=== PATIENT | female | born 1965 | race Caucasian/White ===

== ENCOUNTER 2022-04-12 13:36 | Day surgery (SDC) | payer OTHER ==
--- NOTE | 2022-04-12 13:05 | CONS ---
CONSULT DATE: 04/12/2022 HISTORY: A 57-year-old has a small pea-sized area on medial breast/chest area for some time with increased swelling. She had been on some oral antibiotics recently with no drainage. It has been increasing in size. PAST MEDICAL HISTORY: She has some partials. She has some allergic rhinitis. Osteoarthritis. PAST SURGICAL HISTORY: section. Knee arthroplasty. Carpal tunnel. Uterine ablation in the past. HOME MEDICATIONS: Bactrim. ALLERGIES: ZYBAN. FAMILY HISTORY: Myocardial infarction. SOCIAL HISTORY: History of smoking. Occasional alcohol use. REVIEW OF SYSTEMS: Fourteen systems reviewed. No chest pain or palpitations other systems negative or noncontributory as above and per preadmission questionnaire. PHYSICAL EXAMINATION: Height 5'1". BMI 22.3. GENERAL: No acute distress. HEENT: Sclera nonicteric. NECK: No JVD. CHEST: Equal excursion, breath sounds symmetrical. CVS: Regular rate and rhythm. BREAST: In the right breast/chest area enlarged what looks like an infected cyst. ABDOMEN: Soft. No peritoneal signs. EXTREMITIES: No edema. NEURO: Alert, moving extremities grossly symmetrically. PSYCH: Appropriate mood and affect. SKIN: Dry. IMPRESSION: Infected breast/chest cyst. Discussed I&D versus excision. Risks and benefits explained. The patient prefers to proceed with attempted excision. General risk of bleeding or infection possibly requiring packing. General risk of aches, pains, risk of anesthesia, deep venous thrombosis, pulmonary embolism or pneumonia but not limited to, possible need for packing strip. Risk of wound dehiscence possibly requiring packing at a later date as well as possibility of small packing strip. She understands and agrees to the planned procedure, will proceed with excisional biopsy of infected breast/chest cyst possible packing when OR time available.
[2022-04-12] MEDS ORDERED: CLINDAMYCIN-D5W 900 MG/50 ML*** 900 MG/50 ML BAG IV ONE (13:56)
[2022-04-12] MEDS ORDERED: Lactated Ringers 1,000 ML IV ONE ×2 (13:57→15:17)
[2022-04-12] MEDS ORDERED: Lactated Ringers 1,000 ML IV SCH (14:00)
[2022-04-12] MEDS ORDERED: CLINDAMYCIN-D5W 900 MG/50 ML*** 900 MG/50 ML BAG IV SCH (14:00)
[2022-04-12] MEDS ORDERED: Decadron 4 MG INJ ONE (14:07)
[2022-04-12] MEDS ORDERED: Xylocaine-Mpf 2% 5 Ml Vial ONE (14:07)
[2022-04-12] MEDS ORDERED: DIPRIVAN 200 MG/20 ML IV ONE (14:07)
[2022-04-12] MEDS ORDERED: TORAdol 30 mg Injection ONE (14:07)
[2022-04-12] MEDS ORDERED: Zemuron 100 MG/10 ML ONE (14:07)
[2022-04-12] MEDS ORDERED: Zofran 4 MG/2 ML VIAL ONE (14:07)
[2022-04-12] MEDS ORDERED: SUBLIMAZE 100 MCG/2 ML ONE (14:07)
[2022-04-12] MEDS ORDERED: BRIDION 200MG/2ML IV ONE (14:07)
[2022-04-12] MEDS ORDERED: Sensorcaine 0.25% 10 ML ONE (14:41)
[2022-04-12] MEDS ORDERED: Ephedrine Sulfate 50 MG/ML ONE (15:04)
[2022-04-12] MEDS ORDERED: NORCO 5/325 MG PO PRN (16:20)
[2022-04-12] MEDS ORDERED: NORCO 5/325 MG ONE (16:21)
[2022-04-12 16:42] VITALS: O2SAT 98
[2022-04-12 16:56] VITALS: BP 176/74; PULSE 78
--- NOTE | 2022-04-13 09:43 | OP ---
SURGERY DATE/TIME: 04/12/2022 1446 PREOPERATIVE DIAGNOSIS: Ruptured cyst site medial breast and chest area POSTOPERATIVE DIAGNOSIS: Ruptured cyst site medial breast and chest area PROCEDURE: Excisional biopsy ruptured cyst site breast/chest, cultured, irrigation and intermediate closure (approximately 2 cm). SURGEON: Dr. Branden Mcelroy. ANESTHESIA: General. ESTIMATED BLOOD LOSS: Minimal. INDICATIONS: As noted above. Risks and benefits explained in detail and not limited to and consent obtained. The site had been confirmed earlier today. DESCRIPTION OF PROCEDURE AND FINDINGS: The patient is taken to the operating room. General anesthesia induced. Prepped and draped in the usual sterile fashion. After official time out and no disagreement with planned procedure, marking out around just outside this ruptured cyst site dissection carried down more laterally with good subcutaneous space. However, there was a large amount of purulence immediately. Careful dissection is carried out around this and all subcutaneous planes. A good portion of the cyst wall just fell out and passed off. This ruptured cyst site was about 3 cm in size, passed off for pathology. There was no evidence of any residual cyst wall material in the wound. Hemostasis controlled with some pinpoint cautery. Good hemostasis noted. The wound is irrigated out with copious amount of irrigation and 0.25% Marcaine local injected along the wound. The wound is then closed in intermediate fashion with interrupted 3-0 Vicryl closing deep and superficial subcu. Skin closed with 4-0 Vicryl in interrupted fashion and some interrupted 3-0 Prolene vertical mattress in simple interrupted fashion to reinforce the area. This does have purulence and shahla pus that was in deeper and it was felt it would be safer to leave a temporary Iodoform packing to be gradually advanced out over the next few days as I explained to the patient earlier in the day on the office visit. Sterile dressing is applied. There were no immediate complications. Instructions were given to the in two days start advancing the packing out 1 cm a day, change dressing daily and PRN. A script for additional Bactrim and some tramadol. She can use ice packs. She can use ibuprofen PRN as needed. I will see her back next week and be able to take the Prolene out then and packing.
== END 2022-04-12 17:00 | disposition home or self-care (01) ==
LOC: SDC 13:36
PROVIDERS: ATTEND Surgery
DX: L72.0 Epidermal cyst (principal)
CPT/HCPCS: 87070; 87075; J1100; J1885; J2405; J2704; J3010; A9270-GY

== ENCOUNTER 2022-06-02 06:11 | Day surgery (SDC) | payer OTHER ==
[2022-06-02] MEDS ORDERED: Lactated Ringers 1,000 ML IV SCH (06:30)
[2022-06-02] MEDS ORDERED: DIPRIVAN 200 MG/20 ML IV ONE ×3 (07:42→08:45)
[2022-06-02] MEDS ORDERED: SUBLIMAZE 100 MCG/2 ML ONE (08:13)
[2022-06-02] MEDS ORDERED: PHENYLEPHRINE HCL ONE (08:15)
[2022-06-02] MEDS ORDERED: Ephedrine Sulfate 50 MG/ML ONE (08:23)
[2022-06-02] MEDS ORDERED: Lactated Ringers 1,000 ML IV ONE (08:27)
[2022-06-02 09:24] VITALS: BP 121/73; PULSE 80; O2SAT 100
--- NOTE | 2022-06-02 10:18 | OP ---
SURGERY DATE/TIME: 06/02/2022 0802 PREOPERATIVE DIAGNOSIS: Positive Cologuard. POSTOPERATIVE DIAGNOSIS: 13 colon polyps. PROCEDURE: Colonoscopy. SURGEON: Hammad Espinosa M.D. ANESTHESIA: MAC by Ti Simmons CRNA. ESTIMATED BLOOD LOSS: Minimal. SPECIMENS: Multiple hot and cold forceps polypectomies. DESCRIPTION OF PROCEDURE: After informed written consent was obtained, the patient was taken to the endoscopy suite. She was placed in left lateral decubitus position. Anesthesia was titrated to desired level of consciousness. Digital rectal exam showed normal sphincter tone and no internal lesions. The scope was inserted into the rectum and sequentially the entire colonic mucosa was traversed. The level of cecum was reached and verified with direct visualization of the ileocecal valve. There were no lesions encountered until I reached the sigmoid colon. There were multiple polyps removed from the mid and distal sigmoid some of them were small and removed with cold forceps with minimal blood loss. Others were slightly larger and removed with hot forceps. There were also multiple rectal polyps which were likewise grasped with forceps, cauterized and removed in their entirety. Prior to withdrawal retroflexion showed no internal lesions. In all there were approximately 18 polyps removed in claims representative pathology containers, some of them were very close in proximity and were grouped together and marked appropriately. The patient was sent to the recovery room in good condition and instructed to follow up in one week for pathology results and further follow up recommendations.
== END 2022-06-02 09:37 | disposition home or self-care (01) ==
LOC: SDC 06:11
PROVIDERS: ATTEND Family Medicine
DX: D12.7 Benign neoplasm of rectosigmoid junction (principal); D12.4 Benign neoplasm of descending colon; D12.5 Benign neoplasm of sigmoid colon; R19.5 Other fecal abnormalities
CPT/HCPCS: J2370; J2704; J3010

== ENCOUNTER 2023-11-14 08:39 | Day surgery (SDC) | payer OTHER ==
--- NOTE | 2023-11-13 18:29 | HP ---
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 Needs followup colonoscopy. No bloody stools. No change in bowel habits. No new pain. Family history negative for colon cancer. PAST MEDICAL HISTORY: Some rhinitis, history of polyps, history of some corrective lenses. MEDICATIONS: None on a regular basis. SOCIAL HISTORY: Everyday smoker. Occasional alcohol use. FAMILY HISTORY: Heart attack in the family. PAST SURGICAL HISTORY: She had tubal in the past, carpal tunnel in the past. She had knee scope in the past, uterine ablation in the past, blepharoplasty in the past. She had cyst removed in the past. ALLERGIES: Zyban. REVIEW OF SYSTEMS: Twelve systems reviewed. No chest pain or palpitations. Other systems negative or noncontributory as above and per preadmission questionnaire. PHYSICAL EXAMINATION: GENERAL: Height 5 feet 1 inch. BMI 21.73. No acute distress. HEENT: Sclerae nonicteric. NECK: No JVD. CHEST: Equal excursion, nonlabored breathing. CARDIOVASCULAR: Regular rate and rhythm. ABDOMEN: Soft. EXTREMITIES: No cyanosis or edema. NEUROLOGIC: Alert and oriented, moving all extremities symmetrically. PSYCHIATRIC: Appropriate mood and affect. SKIN: Dry. RECTAL: Deferred until diagnostic exam. 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 Needs short-term followup colonoscopy in this high-risk patient. Shown the risk sheet and explained the procedure in detail including bleeding, infection, risk of bowel injury or perforation, risk of misdiagnosis or nondiagnosis, incomplete exam possibly requiring barium enema, possible need for other procedure or referrals, risk of anesthesia or bowel prep but not limited to. She understands and agreed with plan to proceed. We will proceed with outpatient colonoscopy.
[2023-11-14] MEDS: Lactated Ringers 1,000 ML IV SCH (09:41)
[2023-11-14] MEDS ORDERED: DIPRIVAN 200 MG/20 ML IV ONE (11:46)
[2023-11-14 12:41] VITALS: O2SAT 100
[2023-11-14 12:48] VITALS: BP 127/73; PULSE 59; RESP 18; TEMP 97.6
--- NOTE | 2023-11-15 09:46 | OP ---
SURGERY DATE/TIME: 11/14/2023 7020-1711 PREOPERATIVE DIAGNOSES: 1) History of polyp with dysplasia in the past. 2) Need for followup colonoscopy. POSTOPERATIVE DIAGNOSES: 1) Polyps. 2) Fair bowel prep and small polyps. PROCEDURES: 1) Colonoscopy to the cecum with hot biopsy polypectomy of transverse colon polyp x1. 2) Sigmoid colon polyps x4. 3) Proximal rectum x3. 4) Distal rectum x3. SURGEON: Tomas Mcelroy MD ANESTHESIA: MAC. ASA class 2. WITHDRAWAL TIME: Approximately 10 minutes. INDICATIONS: As noted above, consent obtained. DESCRIPTION OF PROCEDURE AND FINDINGS: The patient was taken to the endoscopy room. MAC anesthesia was induced. After official time-out and no disagreement with planned procedure, digital rectal exam did not reveal any rectal masses. Videocolonoscope was inserted and passed up through the tortuous sigmoid, descending, transverse, and ascending colon around to cecum. Appendiceal orifice and valve well visualized and photo documented. The scope was then carefully withdrawn over the next 10 minutes or so, stopping in the transverse colon to remove a small early polyp versus hyperplastic lesion, 4 in the sigmoid colon, early polyps versus hyperplastic lesions, removed with hot biopsy forceps. There were 3 in the proximal rectum that had the appearance of early polyps versus hyperplastic lesions, removed with hot biopsy polypectomy, and another 3 in the distal rectum. There were no signs of any large polyps,masses, or obstructing lesions. Where she had the prior polyp with the dysplasia, there did not appear to be any gross regrowth or anything. Patient tolerated the procedure well. Findings discussed with the family or friend out in the waiting area.
== END 2023-11-14 13:00 | disposition home or self-care (01) ==
LOC: SDC 08:39
PROVIDERS: ATTEND Surgery
DX: Z09 Encounter for follow-up examination after completed treatment for conditions other than malignant neoplasm (principal); Z86.0100 Personal history of colon polyps, unspecified; K63.5 Polyp of colon; K62.1 Rectal polyp
CPT/HCPCS: J2704